=== PATIENT | male | born 1985 | race African-American/Black ===

== ENCOUNTER 2016-11-20 20:32 | Emergency (ER) | payer OTHER ==
[2016-11-20 20:44] VITALS: BP 123/76; PULSE 88; TEMP 97; BMI 20.9
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
== END 2016-11-20 21:22 | disposition home or self-care (01) ==
LOC: JERFT 20:32
PROC: 0HQ1XZZ Repair Face Skin, External Approach (ICD-10-PCS; principal; 2016-11-20)
DX: S01.112A Laceration without foreign body of left eyelid and periocular area, initial encounter (principal); V43.52XA Car driver injured in collision with other type car in traffic accident, initial encounter; Y92.488 Other paved roadways as the place of occurrence of the external cause; Y93.89 Activity, other specified; Y99.9 Unspecified external cause status
CPT/HCPCS: 99281-25

== ENCOUNTER 2016-11-27 11:01 | Emergency (ER) | payer OTHER ==
[2016-11-27 11:15] VITALS: BP 130/71; PULSE 92; TEMP 98.1; BMI 20.5
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
== END 2016-11-27 11:46 | disposition home or self-care (01) ==
LOC: JER 11:01 → JERFT 11:01
DX: Z48.02 Encounter for removal of sutures (principal)
CPT/HCPCS: 99281-25

== ENCOUNTER 2016-12-25 17:05 | Emergency (ER) | payer OTHER ==
[2016-12-25 17:09] VITALS: BP 139/83; PULSE 81; TEMP 97.7; BMI 20.5
--- NOTE | 2016-12-31 14:56 | EKG ---
Test Reason : Blood Pressure : / mmHG Vent. Rate : 066 BPM Atrial Rate : 066 BPM P-R Int : 190 ms QRS Dur : 096 ms QT Int : 382 ms P-R-T Axes : 081 089 079 degrees QTc Int : 400 ms NORMAL SINUS RHYTHM NORMAL ECG NO PREVIOUS ECGS AVAILABLE Confirmed by SHIVANI TRINIDAD, PIERCE ([id number]) on 12/31/2016 2:55:56 PM Referred By: Confirmed By:PIERCE PARRISH MD
== END 2016-12-25 18:40 | disposition left against medical advice (07) ==
LOC: JER 17:05
DX: Z53.21 Procedure and treatment not carried out due to patient leaving prior to being seen by health care provider (principal)
CPT/HCPCS: 93005; 93010; 99281-25

== ENCOUNTER 2017-06-04 16:18 | Emergency (ER) | payer SELFPAY ==
[2017-06-04 16:30] VITALS: BP 152/81; PULSE 60; TEMP 98.2; BMI 20.5
[2017-06-04] MEDS ORDERED: ONDANSETRON *ODT* 4 MG TABLET SL ONE (16:38)
--- NOTE | 2017-06-04 16:38 | PDOC ---
Rapid Medical Evaluation Chief Complaint: Nausea/Vomiting Time Seen by Provider: 06/04/17 16:36 Medical Evaluation: Allergies Allergy/AdvReac Type Severity Reaction Status Date / Time gluten AdvReac Verified 12/25/16 17:09 Vital Signs Temp Pulse Resp BP Pulse Ox 98.2 F 60 18 152/81 100 06/04/17 16:27 06/04/17 16:27 06/04/17 16:27 06/04/17 16:27 06/04/17 16:27 06/04/17 16:36 PT C/O: vomiting ,, left abd pain, hx celiac PT ON BRIEF EXAM: actively vomiting PT ORDERED FOR: june jerez PT TO PROCEED TO THE ED: Discharge Disposition - Diagnosis Vomiting - Referrals - Patient Instructions - Post Discharge Activity
[2017-06-04] MEDS ORDERED: ONDANSETRON *ODT* 4 MG TABLET ONE (16:41)
--- NOTE | 2017-06-04 18:02 | PDOC ---
History of Present Illness - General Chief Complaint: Nausea/Vomiting Stated Complaint: NAUSEA/VOMITING Time Seen by Provider: 06/04/17 16:36 - History of Present Illness Initial Comments: 06/04/17 18:02 32 yo M with h/o Celiac Dz. who presents with emesis. Past History - Past Medical History Allergies/Adverse Reactions: Allergies Allergy/AdvReac Type Severity Reaction Status Date / Time gluten AdvReac Verified 12/25/16 17:09 Home Medications: Ambulatory Orders NK [No Known Home Medication] 11/27/16 COPD: No GI Disorders: Yes (CELIAC) - Suicide/Smoking/Psychosocial Hx Smoking History: Never smoked Hx Alcohol Use: No Drug/Substance Use Hx: No Substance Use Type: None Review of Systems - Review of Systems Comments:: 06/04/17 18:01 GENERAL/CONSTITUTIONAL: No fever or chills. No weakness. HEAD, EYES, EARS, NOSE AND THROAT: No change in vision. No ear pain or discharge. No sore throat.- CARDIOVASCULAR: No chest pain or shortness of breath RESPIRATORY: No cough, wheezing, or hemoptysis. GASTROINTESTINAL: No nausea, vomiting, diarrhea or constipation. GENITOURINARY: No dysuria, frequency, or change in urination. MUSCULOSKELETAL: No joint or muscle swelling or pain. No neck or back pain. SKIN: No rash NEUROLOGIC: No headache, vertigo, loss of consciousness, or change in strength/ sensation. ENDOCRINE: No increased thirst. No abnormal weight change HEMATOLOGIC/LYMPHATIC: No anemia, easy bleeding, or history of blood clots. ALLERGIC/IMMUNOLOGIC: No hives or skin allergy. *Physical Exam - Vital Signs Last Vital Signs Temp Pulse Resp BP Pulse Ox 98.2 F 60 18 152/81 100 06/04/17 16:27 06/04/17 16:27 06/04/17 16:27 06/04/17 16:27 06/04/17 16:27 - Physical Exam Comments: 06/04/17 18:01 GENERAL: Awake, alert, and fully oriented, in no acute distress HEAD: No signs of trauma, normocephalic, atraumatic EYES: PERRLA, EOMI, sclera anicteric, conjunctiva clear ENT: Auricles normal inspection, hearing grossly normal, nares patent, oropharynx clear without exudates. Moist mucosa NECK: Normal ROM, supple, no lymphadenopathy, JVD, or masses LUNGS: No distress, speaks full sentences, clear to auscultation bilaterally HEART: Regular rate and rhythm, normal S1 and S2, no murmurs, rubs or gallops, peripheral pulses normal and equal bilaterally. ABDOMEN: Soft, nontender, normoactive bowel sounds. No guarding, no rebound. No masses EXTREMITIES : Normal inspection, Normal range of motion, no edema. No clubbing or cyanosis. NEUROLOGICAL: Cranial nerves II through XII grossly intact. Normal speech, normal gait, no focal sensorimotor deficits SKIN: Warm, Dry, normal turgor, no rashes or lesions noted. *DC/Admit/Observation/Transfer Diagnosis at time of Disposition: Vomiting - Referrals - Patient Instructions - Post Discharge Activity
== END 2017-06-04 18:41 | disposition left against medical advice (07) ==
LOC: JER 16:18
DX: Z53.21 Procedure and treatment not carried out due to patient leaving prior to being seen by health care provider (principal)
CPT/HCPCS: 99281-25